=== PATIENT | female | born 1970 | race African-American/Black ===

== ENCOUNTER 2017-05-26 16:45 | Observation (INO) | payer BC, OTHER ==
[~2017-05-26] VITALS: Ht 157.5 cm; Wt 63.3 kg
--- NOTE | ~2017-05-26 | CO ---
Unit #: [id number] #: [id number] Patient: HANNAH BARKLEY [id number] [facility] [address] [place], [place] [address] [id number] I MR#: [id number] NAME: HANNAH BARKLEY ROOM: 554 Age: 46 Sex: F Admission Date: 05/26/2017 : 1970 Attending Physician: Nicola Salcido M.D. Primary Care Physician: Regina Elkins M.D. Consultation Date: 05/27/2017 CONSULTATION REPORT REASON FOR CONSULTATION Depression and anxiety. HISTORY OF PRESENT ILLNESS Ms. Hannah Barkley is a 46-year-old -[place] female seen in room 554, bed 1 on 05/27/2017 at [facility]. Patient lying comfortably in bed, seems somewhat anxious, receiving oxygen. Scheduled for stress test this morning. Patient reported that she was admitted with chest discomfort. Reported feeling sad, depressed, anxious, having anxiety attack, depression. Denied any suicidal or homicidal ideation. Denied any psychotic symptom. Patient denied any use of any drugs and alcohol. Reported stress from work, stress from spouse (relationship problems) and from son who is 15. PAST PSYCHIATRIC HISTORY Unremarkable for any history of any previous treatment but current symptoms are from the last two months. MEDICATION HISTORY 1. Neurontin. 2. Nitroglycerin. 3. Lortab. 4. Vistaril. 5. Lopressor. MEDICAL HISTORY Remarkable for history of hypertension. FAMILY HISTORY AND SOCIAL HISTORY Patient lives at home. Has a good support system from but having problems with marital discord. No history of abuse. No history of substance abuse. REVIEW OF SYSTEMS A complete review of systems unremarkable. Vital signs: Please see above. MENTAL STATUS EXAMINATION General appearance: Patient dressed casually, lying comfortably in bed. Seems somewhat anxious, sad, depressed. Attention span and concentration fair. Speech: Regular rate. Coherent. Oriented in time, place, and person. Mood and affect sad, depressed. Thought process: Goal directed. Thought content: Patient denied any suicidal or homicidal ideation. Denied any psychotic symptom. Recent and remote memory fair. Language Unit #: [id number] #: [id number] Patient: HANNAH BARKLEY intact. Fund of knowledge fair. Insight and judgment fair to slightly impaired. DIAGNOSES PSYCHIATRIC: Major depressive disorder, recurrent, severe, F33.2. Anxiety disorder, not otherwise specified, F40.01. SECONDARY DIAGNOSIS: Deferred. MEDICAL DIAGNOSIS: Please refer to history and physical. STRESSORS: Psychosocial stressors, relationship problem. ASSESSMENT AND PLAN 1. Supportive psychotherapy and psychoeducation provided to patient. 2. Educated about benefits and side effects of medications and course and prognosis of illness. 3. Recommending at this time to try Vistaril 25 mg b.i.d. for anxiety, trazodone 50 mg at bedtime for sleep, and Zoloft 50 mg daily for depression. Patient advised to follow up at [facility] outpatient program for counseling and was given crisis line number, [phone]. Please feel free to call if any questions, . Dictated by... Marek Hernandez TD: 05/28/2017 09:27 JOB #: [id number] CONSULTATION REPORT Page 1 of 1 X Roc Dwyer MD X CONSULTATION REPORT
--- NOTE | ~2017-05-26 | ST ---
Unit #: [id number] #: [id number] Patient: MARIO BARKLEY [id number] [address] [address] [id number] I MR#: [id number] NAME: MARIO BARKLEY : 1970 SEX: F STUDY DATE/TIME: 05/27/2017 UNIT: C5B ROOM: 554 STUDY DESCRIPTION: Stress test Attending Physician: Nicola Salcido M.D. Primary Care Physician: Regina Elkins M.D. CARDIOLOGY REPORT EXAM Walking Lexiscan Cardiolite stress test. FINDINGS BASELINE EKG: Normal sinus rhythm with ventricular rate 79 beats per minute, left atrial abnormality, slow R wave progression, mild left ventricular hypertrophy, and nonspecific ST-T wave abnormalities in inferolateral leads with prolonged QT. Walking Lexiscan is a 4-minute test with Lexiscan being injected within the first minute followed by Cardiolite. EKG during the test was equivocal to baseline. No acute ischemic changes. Patient had no complaints of chest pain, palpitations, or dizziness. Had increased shortness of breath and some nausea and weakness, which resolved in recovery phase. Maximum heart rate response was 133 beats per minute with a maximum blood pressure response of 154/78 mmHg. Cardiolite was injected after Lexiscan within the first minute of the test. Radionuclide test pending. Please correlate with nuclear images. Dictated by... Kristin Posey A.P.R.N. for Marek Fajardo/dea TD: 05/27/2017 12:12 JOB #: [id number] Unit #: [id number] #: [id number] Patient: MARIO BARKLEY CARDIOLOGY REPORT Page 1 of 1 X Kristin Posey APRN CARDIOLOGY REPORT
--- NOTE | ~2017-05-26 | EKG ---
PATIENT: MARIO BARKLEY UNIT #: [id number] Ventricular Rate: 56 BPM Atrial Rate: 56 BPM P-R Interval: 146 ms QRS Duration: 84 ms Q-T Interval: 472 ms QTC Calculation(Bezet): 455 ms P [place]: 47 degrees Calculated R [place]: 43 degrees Calculated T [place]: 49 degrees Diagnosis Line: Sinus bradycardia Diagnosis Line: Normal ECG Diagnosis Line: When compared with ECG of 26-MAY-2017 16:51, Diagnosis Line: (unconfirmed) Diagnosis Line: Vent. rate has decreased BY 30 BPM Diagnosis Line: Confirmed by CHAKA ORO MD ([id number]) on 05/29/2017 Diagnosis Line: 8:11:03 AM INTERPRETING MD: PREETHI SIERRA
--- NOTE | ~2017-05-26 | DS ---
Unit #: [id number] #: [id number] Patient: MARIO BARKLEY [id number] [facility]. [address] [address] [id number] I MR#: [id number] NAME: MARIO BARKLEY ROOM: 554 Age: 46 Sex: F Admission Date: 05/26/2017 : 1970 Discharge Date: 05/27/2017 Attending Physician: Nicola Salcido M.D. Primary Care Physician: Regina Elkins M.D. DISCHARGE SUMMARY SHORT STAY SUMMARY HISTORY OF PRESENT ILLNESS/HOSPITAL COURSE This is a 46-year-old female with no significant cardiac history who has a history of hypertension and nicotine abuse who came into the emergency room after she had onset of substernal chest pain. She said it felt like a heavy pushing pressure. Patient has been under a lot of stress. She is having marital issues. She said she has not been able to sleep and work properly on her job. She has just been really nervous and upset. 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 She said she had to leave work yesterday because she was having chest pain and just feeling so tired and worn out. She was encouraged to come to the emergency room by her coworkers for further evaluation and management. She describes the pain as being substernal and is like a heavy pushing pressure. She said she has occasional headache with the discomfort, but she denies any pain up into her neck or bilateral jaw, shoulders, arms, or elbows. She denies any palpitations and no dizziness, presyncope, or syncope. She denies having any recent coughing, fever, or chills. In the emergency room, patient's blood pressure was found to be 189/109, heart rate 87, respirations 16, temperature 98.6, and O2 saturations 100% on room air. Her EKG did not show anything acute. Her chest x-ray was normal. Patient received some Ativan and an aspirin. Cardiac enzymes continued to be monitored and remained negative. Patient mentioned she has never had a stress test or any ischemic heart disease workup so did perform a walking Lexiscan Cardiolite stress test to further evaluate. Patient tolerated the procedure without any complications. No ischemia and no focal wall motion abnormality. Patient also had a 2D echo which preliminary findings by Dr. Rose were normal (1) and no significant valvular disturbances. After she was given her blood pressure medication, her blood pressure stabilized. With the findings on the stress test and the echo are normal, and the patient is feeling overall stable, she will be discharged home. For better blood pressure management, lisinopril was added onto her regime in addition to metoprolol. It is noted that Dr. Dwyer, Psychiatry, saw the patient due to having some anxiety and depression. He has prescribed her Zoloft, Vistaril, and trazodone. Patient will follow up with Dr. Dwyer at [facility]. He gave some information to the patient to call and make an appointment. Patient will be discharged home today in stable condition. She is to follow up with her primary care physician in one to two weeks. New Unit #: [id number] #: [id number] Patient: MARIO BARKLEY prescriptions were given to the patient by Dr. Dwyer of Vistaril, trazodone, and Zoloft. The patient has been given this number at [facility], [phone], to make an appointment with Dr. Dwyer or his nurse practitioner. There are no signs or symptoms of unstable angina or acute congestive heart failure. Further recommendations pending. DISCHARGE MEDICATIONS 1. Gabapentin advised to decrease the dose to 2 tablets of 600 mg p.o. daily at bedtime. 2. Zoloft 25 mg p.o. daily at bedtime, new medication. 3. Trazodone 50 mg p.o. daily at bedtime. 4. Vistaril 25 mg p.o. 3 times daily. 5. Metoprolol 25 mg p.o. daily. 6. Lisinopril 10 mg p.o. daily. 7. Aspirin 81 mg daily. 8. Hydrocodone and acetaminophen 7.5/325 at 1 tablet p.o. 4 times daily p.r.n. DIAGNOSTIC STUDIES LATEST LABORATORY: Troponin was less than 0.03. Fasting lipid profile with cholesterol 188, triglycerides, 136, LDL 135, HDL 26, and LDL/HDL ratio 5. TSH is 1.64. Dictated by... Kristin E. PoseyBety portillo M.D. CEC/am TD: 05/27/2017 15:31 JOB #: [id number] DISCHARGE SUMMARY Page 1 of 1 X Kristin Posey APRN DISCHARGE SUMMARY
--- NOTE | ~2017-05-26 | TH ---
Unit #: [id number] #: [id number] Patient: MARIO BARKLEY [id number] [address] [address] [id number] I MR#: [id number] NAME: MAIRO BARKLEY : 1970 SEX: F STUDY DATE/TIME: 05/27/2017 UNIT: C5B ROOM: 554 STUDY DESCRIPTION: Lexiscan stress test - Nuclear Attending Physician: Nicola Salcido M.D. Primary Care Physician: Regina Elkins M.D. CARDIOLOGY REPORT PROCEDURE PERFORMED Lexiscan Cardiolite stress test - Nuclear portion. PROCEDURE Using technetium 99m-labeled Cardiolite, rest and stress SPECT images were obtained. Multiple SPECT images were obtained in various views, including horizontal and vertical long axis and short axis views of the left ventricle. Images were obtained by gated SPECT method. The patient was administered 10.65 mCi of Cardiolite at rest. The patient was administered 33.9 mCi of Cardiolite after Lexiscan infusion was completed. On the stress images, there is normal perfusion noted. The rest images show normal perfusion. Comparing the rest and stress images, there is no stress-induced ischemia noted. The left ventricular ejection fraction is calculated to be 61%. There is no focal wall motion abnormality seen. CONCLUSION 1. No stress-induced ischemia noted. 2. The left ventricular ejection fraction is calculated to be 61%. 3. There is no focal wall motion abnormality seen. 4. Normal Lexiscan Cardiolite stress test. Dictated by... Marek Fajardo/jeremy TD: 05/27/2017 15:24 JOB #: [id number] CARDIOLOGY REPORT Page 1 of 1 X Vivien Rose MD <ELECTRONICALLY SIGNED> 07/15/17 1524 CARDIOLOGY REPORT
--- NOTE | ~2017-05-26 | EKG ---
PATIENT: MARIO BARKLEY UNIT #: [id number] Ventricular Rate: 86 BPM Atrial Rate: 86 BPM P-R Interval: 114 ms QRS Duration: 84 ms Q-T Interval: 374 ms QTC Calculation(Bezet): 447 ms P [place]: 49 degrees Calculated R [place]: 44 degrees Calculated T [place]: 43 degrees Diagnosis Line: Normal sinus rhythm Diagnosis Line: Normal ECG Diagnosis Line: Diagnosis Line: Confirmed by CHAKA ORO MD ([id number]) on 05/29/2017 Diagnosis Line: 8:06:54 AM INTERPRETING MD: PREETHI SIERRA
--- NOTE | ~2017-05-26 | CR72 ---
[facility] A Service of [facility] & [facility] RADIOLOGY TEXT RESULTS PATIENT: MARIO BARKLEY LOCATION: [facility] 554-01 : [birth year] UNIT #: [id number] AGE: [address]: Nicola Salcido MD SEX: F ORDER DR: [id number] [facility] [address] [facility] [place], [place] [address] [id number] MR#: [id number] Acc #: [id number] NAME: MARIO BARKLEY : 1970 SEX: F STUDY DATE/TIME: 05/26/2017 18:25 UNIT: [facility] ROOM: STUDY DESCRIPTION: CR Chest Single View Portable Attending Physician: Janine Guallpa M.D. Ordering Physician: Janine Guallpa M.D. Primary Care Physician: Regina Elkins M.D. MEDICAL IMAGING REPORT This report is preliminary unless electronic signature is present EXAM AP radiograph of the chest HISTORY Chest pain, fatigue began 05/25/2017. FINDINGS AP radiograph of the chest is presented. Comparison 01/24/2014. The heart and mediastinum are normal in size and contour. The lungs are moderately well inflated with no evidence of acute infectious or inflammatory disease, pleural effusion or pneumothorax and no suspicious nodule. Bony structures unremarkable. Dictated by... Richmond Flowers M.D. THIS IS AN ELECTRONICALLY VERIFIED REPORT Richmond Flowers M.D. at 05/27/2017 1:21 PM HAYDEN/cliff TD: 05/26/2017 20:10 JOB #: [id number] MEDICAL IMAGING REPORT Page 1 of 1 COPY
[~2017-05-26 16:45] MED LIST: GABAPENTIN600 MG PO; KEFLEX500 M1 PO; LOPRESSOR PO; LORTAB 7.51 TAB PO; NORCO 10-325 TA1 TAB PO; WALGREENS; ZOCOR20 MG PO
[2017-05-26 18:05] LABS: BASOPHIL% 0.6 % (0-2.5); EOSINOPHIL# 0.1 X10e3 (0-0.7); EOSINOPHIL% 0.8 % (0.0-7.0); HEMOGLOBIN 13.8 gm/dL (12.0-16.0); LYMPHOCYTE# 2.5 X10e3 (1.0-3.5); LYMPHOCYTE% 30.9 % (17.0-45.0); MEAN CELL VOLUME 84.2 FL (83-96); MEAN CORPUSCULAR HEMOGLOBIN 27.7 PG (28-34); MEAN PLATELET VOLUME 8.4 FL (6.5-11.5); MONOCYTE# 0.7 X10e3 (0-1.0); MONOCYTE% 9.2 % (3.0-12.0); NEUTROPHIL# 4.7 X10e3 (1.5-7.1); NEUTROPHIL% 58.5 % (40-75); PLATELET COUNT 198 X10e3 (140-420); RED BLOOD COUNT 4.99 X10e (3.90-5.30); RED CELL DISTRIBUTION WIDTH 13.1 % (11.0-15.5)
[2017-05-26 18:08] LABS: DIFF IND NO
[2017-05-26 18:18] LABS: PARTIAL THROMBOPLASTIN TIME 24.5 SECONDS (23.5-31.3); PROTHROMBIN TIME (PATIENT) 11.3 SECONDS (10.0-11.7)
[2017-05-26 18:22] LABS: ALBUMIN SERUM 4.7 g/dL (3.5-5.0); BILIRUBIN, DIRECT 0.1 mg/dL (0.0-0.2); BILIRUBIN,INDIRECT 0.9 mg/dL (0.0-0.9); CALCIUM SERUM 9.5 mg/dL (8.4-10.2); GLOM FILT RATE Estimated 78.3 mL/min (>60); POTASSIUM 3.3 mmol/L (3.5-5.1); PROTEIN TOTAL SERUM 8.6 g/dL (6.0-8.3)
[2017-05-26 20:01] LABS: URINE SOURCE CLEAN CATCH
[2017-05-26 20:13] LABS: URINE APPEARANCE SL HAZY; URINE BLOOD NEG (NEG); URINE COLOR YELLOW; URINE GLUCOSE NORM (NORM); URINE KETONE NEG (NEG); URINE LEUKOCYTE ESTERASE NEG (NEG); URINE NITRATE NEG (NEG); URINE PROTEIN 1+ (NEG); URINE SPECIFIC GRAVITY 1.025 (1.003-1.035); URINE UROBILINOGEN NORM (NORM)
[2017-05-26 20:15] LABS: POC - CKMB <1.0 ng/mL (0.0-7.9); POC - TROPONIN <0.05 ng/mL (<=0.05)
[2017-05-26 20:16] LABS: URINE BILIRUBIN NEG (NEG)
[2017-05-26 20:18] LABS: CULTURE INDICATED? YES; URINE BACTERIA AUWI 1+ (NEGATIVE); URINE MUCUS PRESENT; URINE SQUAMOUS EPITHELIAL CELL FEW /[HPF]
[2017-05-26 20:19] LABS: POC - CKMB 1.3 ng/mL (0.0-7.9); POC - TROPONIN <0.05 ng/mL (<=0.05)
[2017-05-26 20:32] LABS: POC - CKMB 2.1 ng/mL (0.0-7.9); POC - TROPONIN <0.05 ng/mL (<=0.05)
[2017-05-26 20:54] LABS: AMPHETAMINE NEG (NEG); BARBITURATES NEG (NEG); BENZODIAZEPINES POS (NEG); COCAINE NEG (NEG); MARIJUANA NEG (NEG); OPIATES NEG (NEG); TRICYCLIC ANTIDEPRESSANTS POS (NEG); U METHADONE NEG (NEG)
[2017-05-26] MEDS ORDERED: TRAZODONE HCL150 MG PO (21:21)
[2017-05-26] MEDS ORDERED: LORTAB 7.5-3251 EACH PO (21:22)
[2017-05-26] MEDS ORDERED: GABAPENTIN600 MG PO (21:24)
[2017-05-26] MEDS ORDERED: METOPROLOL TAR25 MG PO (21:25)
[2017-05-27 10:47] LABS: CHOLESTEROL 188 mg/dL (0-200); HDL CHOLESTEROL 26 mg/dL (35-95); LDL/HDL RATIO 5 RATIO (0-4); TRIGLYCERIDES 136 mg/dL (10-160)
[2017-05-27 10:49] LABS: LDL CHOLESTEROL 135 mg/dL (-130)
[2017-05-27] MEDS ORDERED: ZOLOFT50 MG PO (14:37)
[2017-05-27] MEDS ORDERED: DESYREL50 MG PO (14:38)
[2017-05-27] MEDS ORDERED: VISTARIL PO (14:44)
[2017-05-27] MEDS ORDERED: LISINOPRIL10 MG PO (14:45)
[2017-05-27] MEDS ORDERED: BAYER CHEWABLE81 MG PO (14:46)
== END 2017-05-27 15:13 | disposition home or self-care (01) | DRG 313 ==
LOC: CED 16:45 → CEDOF 20:50 → C5B 21:18 → CEDOF 21:18 → CED 21:18 → C5B 22:20 → CEDOF 22:20 → C5B 05-27 15:13
PROVIDERS: Emergency Medicine; Internal Medicine Cardiovascular Disease
DX: R07.2 Precordial pain (principal); I10 Essential (primary) hypertension; F17.200 Nicotine dependence, unspecified, uncomplicated; R11.2 Nausea with vomiting, unspecified; Z90.710 Acquired absence of both cervix and uterus; Z79.82 Long term (current) use of aspirin; Z79.899 Other long term (current) drug therapy
CPT/HCPCS: 36415; 71010; 78452; 80048; 80061; 80076; 80307; 81003; 82553; 83880; 84443; 84484; 85025; 85610; 85730; 87086; 93005; 93017; 93306; 96374; 96376; 99285; A9500; G0378; J2060; J2785